=== PATIENT | female | born 1970 | race Caucasian/White ===

== ENCOUNTER → 2017-10-01 | Outpatient (CLI) | payer BC ==
[~2017-10-01] MED LIST: LIDOCAINE 1%, 20ML ONE
== END | disposition home or self-care (01) ==
LOC: CFH 07:50
PROVIDERS: ATTEND Nurse Practitioner Family
DX: D48.62 Neoplasm of uncertain behavior of left breast (principal)
CPT/HCPCS: 19081; 88305; G0206; J3490